=== PATIENT | female | born 1965 | race Two or more races ===

== ENCOUNTER 2023-06-05 18:27 | Emergency (ER) | payer OTHER ==
[~2023-06-05] VITALS: Ht 167.6 cm; Wt 74.8 kg
[2023-06-05] MEDS ORDERED: KETOROLAC TROMETHAMINE 30 MG VIAL IM STA (22:00)
[2023-06-05] MEDS ORDERED: METHYLPREDNISOLONE SOD SUCC 125 MG VIAL IM STA (22:04)
== END 2023-06-05 22:27 | disposition home or self-care (01) ==
LOC: ER 18:27
DX: M25.561 Pain in right knee (principal)